=== PATIENT | female | born 1940 | race Caucasian/White ===

== ENCOUNTER → 2018-06-13 | Outpatient (CLI) | payer MEDICARE, OTHER ==
--- NOTE | 2018-06-13 14:54 | Diagnostic Imaging Report ---
EXAMINATION: CHEST 2 VIEWS INDICATION: Bronchitis. COMPARISON: None FINDINGS: TUBES and LINES: None. LUNGS: Lungs are well inflated. Left lung base is somewhat obscured by overlying breast implant. Mild patchy left basilar opacity. No evidence of lobar pneumonia or pulmonary edema. PLEURA: No pleural effusion or pneumothorax. HEART AND MEDIASTINUM: The cardiomediastinal silhouette is unremarkable. BONES AND SOFT TISSUES: No acute osseous abnormality. There are bilateral breast implants. UPPER ABDOMEN: No free air under the diaphragm. Surgical clips in the upper abdomen. Atherosclerotic vascular calcifications. IMPRESSION: Left breast implant somewhat obscures the left lung base. Mild patchy left basilar opacity, likely atelectasis. Patchy pneumonia is possible in the appropriate clinical setting. Signed by: Dr. Carmina Chaparro MD on 06/13/2018 2:51 PM
== END ==
LOC: RAD 11:52
PROVIDERS: ATTEND Internal Medicine
DX: J20.9 Acute bronchitis, unspecified (principal)
CPT/HCPCS: 71046

== ENCOUNTER 2018-08-24 14:09 | Inpatient (IN) | payer MEDICARE, OTHER ==
--- NOTE | 2017-08-25 19:05 | NUR ---
Report received from MARY Lynn. Patient received lethargic and confused. Respiration even and unlabored with RA. Bed in lower position,locked. Call hernandez within reach. Bed alarm on. Will continue to monitor.
[~2018-08-24] VITALS: Ht 160 cm; Wt 62.6 kg
--- OUTSIDE RECORDS SUMMARY | 2018-08-24 14:11 | XMS REPORT | Clinical Summary ---
Author Author [facility] Address Unknown Phone Unavailable Care Team Providers Care Research Instructor Name Role Phone Mirtha Newman MD PCP Allergies No Known Allergies Medications End Date Status Medication Sig Dispensed Refills Start Date Active cyanocobalamin 1,000 Inject 1 mL 1 mL 10 mcg/mL injection (1,000 mcg 8 total) into the shoulder, thigh, or buttocks every 30 (thirty) days for 11 doses. Active cyanocobalamin 1000 MCG Take 1,000 0 tablet mcg by mouth daily. Active acetaminophen (TYLENOL) Take 500 mg 0 500 MG tablet by mouth every 6 (six) hours as needed for mild pain. 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 Thrombocytopenia 03/05/2017 S/P total hip arthroplasty 10/11/2015 Encounters Care Team Description Date Type Specialty Sonia Portillo Left hip pain (Primary Dx) 03/12/2018 Orders Only Orthopedic Surgery after 08/23/2017 Family History Medical History Relation Name Comments Diabetes Brother Heart disease Father Dementia Mother Relation Name Status Comments Brother Alive Father Mother Alive Social History Date Tobacco Use Types Packs/Day Years Used Former Smoker Cigarettes 1 15 Smokeless Tobacco: Never Used Comments: quit at 40 yr ago Alcohol Use Drinks/Week oz/Week Comments Yes 1-2 Glasses 0.6 - 1.2 of wine Sex Assigned at Date Recorded Not on file Industry Job Start Date Occupation Not on file Not on file Not on file Travel End Travel History Travel Start No recent travel history available. Last Filed Vital Signs Not on file Plan of Treatment Health Maintenance Due Date Last Done Comments SHINGLES VACCINES (#1) 1990 65+ PNEUMOCOCCAL VACCINE 2005 (1 of 2 - PCV13) INFLUENZA VACCINE 09/26/2018 Implants Device Identifier Shelf Expiration Date Model / Serial / Lot Implanted Type Area Manufactur er 08/22/2025 [id number] / / [id number] G7 Acetabular Shell 3 Hole - IPM Left: Hip BIOMET, [id number] [employer] Implanted: Qty: 1 on 10/11/2015 by Royal Garrido MD 06/17/2025 [id number] / / [id number] Screw G7 6.5x30 - [id number] IPM Left: Hip BIOMET, Implanted: Qty: 1 on 10/11/2015 by [employer] Royal Carlisle MD DEVICES 07/05/2020 [id number] / / [id number] Liner G7 Neutral Arcomxl F36 - IPM Left: Hip BIOMET, [id number] [employer] Implanted: Qty: 1 on 10/11/2015 by Royal Garrido MD 07/11/2025 [id number] / / [id number] Screw G7 6.5x25 - [id number] IPM Left: Hip BIOMET, Implanted: Qty: 1 on 10/11/2015 by [employer] Royal Carlisle MD DEVICES 07/27/2025 [id number] / / [id number] Tprlc 133 Type1 Pps So 13.0 IPM Left: Hip BIOMET, Taperloc Complete Stem - [id number] [employer] Implanted: Qty: 1 on 10/11/2015 by Royal Garrido MD 07/27/2025 [id number] / / [id number] Cer Bioloxd Mod Hd 36mm Std Nk - IPM Left: Hip BIOMET, [id number] [employer] Implanted: Qty: 1 on 10/11/2015 by Royal Garrido MD Results Not on fileafter 08/23/2017 Insurance Type Payer Benefit Subscriber ID Effective Phone Address Plan / Dates Group Medicare MEDICARE MEDICARE xxxxxxxxxx 2005-P [place], PART A AND resent [place] B Commercial BANKERS LIFE AND CASUALTY BANKERS xxxxxxxxx 2005-P LIFE AND resent CASUALTY Advance Directives Patient has advance care planning documents on file. For more information, gokul badillo contact: Jose Angel Hernandez [address] [place] [address]
--- OUTSIDE RECORDS SUMMARY | 2018-08-24 14:11 | XMS REPORT ---
[facility] Address Unknown Phone Unavailable Care Team Providers Care Swamper Name Role Phone DEB HODGE Unavailable Unavailable Problems This patient has no known problems. Allergies, Adverse Reactions, Alerts This patient has no known allergies or adverse reactions. Medications This patient has no known medications. Results Test Description Test Time Test Comments Text Results Atomic Results Result Comments CHEST 2 VIEWS 2018-06-13 14:48:00 [place] [address] Patient Name: MATTHEW SIDDIQUI MR #: [id number] : 1940 Age/Sex: 77/F Req #: [id number] Adm Physician: Ordered by: DEB HODGE MD Report #: [id number] Location: [facility] Room/Bed: Procedure: [id number] DX/CHEST 2 VIEWS Exam Date: Exam Time: REPORT STATUS: Signed EXAMINATION: CHEST 2 VIEWS INDICATION: Bronchitis. COMPARISON: None FINDINGS: TUBES and LINES: None. LUNGS: Lungs are well inflated. Left lung base is somewhat obscured by overlying breast implant. Mild patchy left basilar opacity. No evidence of lobar pneumonia or pulmonary edema. PLEURA: No pleural effusion or pneumothorax. HEART AND MEDIASTINUM: The cardiomediastinal silhouette is unremarkable. BONES AND SOFT TISSUES: No acute osseous abnormality. There are bilateral breast implants. UPPER ABDOMEN: No free air under the diaphragm. Surgical clips in the upper abdomen. Atherosclerotic vascular calcifications. IMPRESSION: Left breast implant somewhat obscures the left lung base. Mild patchy left basilar opacity, likely atelectasis. Patchy pneumonia is possible in the appropriate clinical setting. Signed by: Dr. Mallory Hunt MD on 06/13/2018 2:51 PM Dictated By: MALLORY HUNT MD 1450 Transcribed By: BERNADETTE on 06/13/18 1451 COPY TO: DEB HODGE MD
[2018-08-24] MEDS ORDERED: PANTOPRAZOLE 40 MG 10ML VIAL IV ONE (14:30)
[2018-08-24] MEDS ORDERED: ONDANSETRON HCL INJ 2MG/ML 2ML 2 MG/ML VIAL IV ONE (14:30)
[2018-08-24] MEDS ORDERED: SODIUM CHLORIDE 0.9% 1000ML 1,000 ML IV STA ×2 (14:30→15:43)
[2018-08-24 14:50] LABS: BASOPHILS % 0.4 % (0.0-1.0); LYMPHOCYTES # (AUTO) 1.3 (1.0-3.2); LYMPHOCYTES % 15.4 % (18.0-39.1); MEAN CORPUSCULAR HEMOGLOBIN 34.4 pg (28-32); MEAN CORPUSCULAR VOLUME 104.3 fL (81-99); MONOCYTES # (AUTO) 0.8 (0.2-0.8); MONOCYTES % 10.1 % (4.4-11.3); NEUTROPHILS # (AUTO) 6.1 (2.1-6.9); NEUTROPHILS % 73.7 % (38.7-80.0); PLATELET COUNT 131 x10e3/uL (140-360); RED BLOOD COUNT 1.86 x10e6/uL (3.6-5.1); RED CELL DISTRIBUTION WIDTH 13.2 % (11.7-14.4)
[2018-08-24 14:57] LABS: HEMATOCRIT 19.4 % (34.2-44.1); HEMOGLOBIN 6.4 g/dL (12.0-16.0)
[2018-08-24 14:58] LABS: INR 1.37; PROTHROMBIN TIME 17.5 seconds (11.9-14.5)
[2018-08-24 14:59] LABS: PARTIAL THROMBOPLASTIN TIME 28.5 seconds (23.8-35.5)
[2018-08-24] MEDS ORDERED: OCTREOTIDE ACETATE 0.05 MG/ML AMP IV ONE (15:00)
[2018-08-24] MEDS ORDERED: OCTREOTIDE ACETATE 600 MCG in SODIUM CHLORIDE 0.9% 250ML 300 ML IV SCH (15:00)
--- NOTE | 2018-08-24 15:07 | NUR ---
New brief applied at this time.
[2018-08-24 15:24] LABS: AMPHETAMINES SCREEN,URINE NEGATIVE (NEGATIVE); BENZODIAZEPINES SCREEN,URINE NEGATIVE (NEGATIVE); PHENCYCLIDINE SCREEN,URINE NEGATIVE (NEGATIVE)
[2018-08-24] MEDS ORDERED: VITAMIN B-121000 MCG IM (15:25)
[2018-08-24] MEDS ORDERED: FUROSEMIDE40 MG PO (15:25)
[2018-08-24] MEDS ORDERED: DIPHENHYDRAMINE25 M2 PO (15:25)
[2018-08-24] MEDS ORDERED: ASPIR 8181 MG PO (15:25)
[2018-08-24] MEDS ORDERED: AMOXICILLIN250 MG PO (15:25)
[2018-08-24] MEDS ORDERED: NAPROXEN250 MG PO (15:25)
--- NOTE | 2018-08-24 15:40 | NUR ---
Informed consent obtained at this time.
[2018-08-24] MEDS ORDERED: MULTIVITAMINS- 12 INJECTION 10 ML, FOLIC ACID MDV 5 MG, THIAMINE HCL INJ 100 MG in SODI... IV ONE (15:45)
[2018-08-24] MEDS ORDERED: SODIUM CHLORIDE 0.9% 1000ML 1,000 ML ONE (15:50)
[2018-08-24] MEDS: OCTREOTIDE ACETATE 500 MCG in SODIUM CHLORIDE 0.9% 250ML 249 ML IV SCH (16:17)
[2018-08-24 16:21] LABS: ALBUMIN 2.5 g/dL (3.5-5.0); ALBUMIN/GLOBULIN RATIO 0.7 (0.8-2.0); CREATININE, SERUM 1.05 mg/dL (0.57-1.11); MAGNESIUM 1.8 MG/DL (1.3-2.1)
[2018-08-24] MEDS ORDERED: IOPAMIDOL 370 MG/ML 200 ML INFUS..BTL INJ ONE (16:52)
[2018-08-24] MEDS ORDERED: SODIUM CHLORIDE 0.9% 50ML 50 ML ONE (16:52)
[2018-08-24 17:03] LABS: BILIRUBIN,URINE NEGATIVE (NEGATIVE); CLARITY,URINE SL CLOUDY (CLEAR); COLOR,URINE YELLOW (YELLOW); KETONES,URINE NEGATIVE (NEGATIVE); LEUKOCYTE ESTERASE ,URINE TRACE (NEGATIVE); NITRITE,URINE NEGATIVE (NEGATIVE); PROTEIN,URINE DIPSTICK NEGATIVE (NEGATIVE); URINE UROBILINOGEN 0.2 mg/dL (0.2 - 1)
[2018-08-24 17:05] LABS: CREATINE KINASE MB 4.4 ng/mL (0-5.0)
--- OUTSIDE RECORDS SUMMARY | 2018-08-24 17:07 | XMS REPORT | Clinical Summary ---
Author Author [facility] Address Unknown Phone Unavailable Care Team Providers Care Flight Mechanic Name Role Phone Mirtha Newman MD PCP [...] Lot Implanted Type Area Manufactur er 08/22/2025 [id number] / / [id number] G7 Acetabular Shell 3 Hole - IPM Left: Hip BIOMET, [id number] [employer] Implanted: Qty: 1 on 10/11/2015 by Royal Garrido MD 06/17/2025 [id number] / / [id number] Screw G7 6.5x30 - [id number] IPM Left: Hip BIOMET, Implanted: Qty: 1 on 10/11/2015 by [employer] Royal Carlisle MD DEVICES 07/05/2020 [id number] / / [id number] Liner G7 Neutral Arcomxl F36 - IPM Left: Hip BIOMET, [id number] [employer] Implanted: Qty: 1 on 10/11/2015 by Royal Garrido MD 07/11/2025 [id number] / / [id number] Screw G7 6.5x25 - [id number] IPM Left: Hip BIOMET, Implanted: Qty: 1 on 10/11/2015 by [employer] Royal Carlisle MD DEVICES 07/27/2025 [id number] / / [id number] Tprlc 133 Type1 Pps So 13.0 IPM Left: Hip BIOMET, Taperloc Complete Stem - [id number] [employer] Implanted: Qty: 1 on 10/11/2015 by Royal Garrido MD 07/27/2025 [id number] / / [id number] Cer Bioloxd Mod Hd 36mm Std Nk - IPM Left: Hip BIOMET, [id number] [employer] Implanted: Qty: 1 on 10/11/2015 [...] information, gokul badillo contact: Jose Angel Hernandez [address] [place] [address]
[2018-08-24] MEDS ORDERED: MORPHINE SULFATE 2 MG/ML SYR 1ML IV PRN (17:30)
[2018-08-24 17:32] LABS: BACTERIA,URINE MODERATE /HPF
[2018-08-24 17:33] LABS: EPITHELIAL CELLS,URINE FEW /LPF
--- NOTE | 2018-08-24 17:41 | Diagnostic Imaging Report ---
EXAMINATION: CHEST SINGLE (PORTABLE) INDICATION: Abdominal pain. COMPARISON: None FINDINGS: TUBES and LINES: None. LUNGS: Lungs are well inflated. There is no evidence of pneumonia or pulmonary edema. PLEURA: No pleural effusion or pneumothorax. HEART AND MEDIASTINUM: The cardiomediastinal silhouette is unremarkable. BONES AND SOFT TISSUES: No acute osseous abnormality. UPPER ABDOMEN: No free air under the diaphragm. IMPRESSION: No acute radiographic abnormality. Signed by: Dr. Carmina Chaparro MD on 08/24/2018 5:37 PM
[2018-08-24] MEDS: MORPHINE SULFATE INJ 4 MG/ML INJ 1ML IV PRN ×2 (17:55→23:50)
--- NOTE | 2018-08-24 17:58 | Diagnostic Imaging Report ---
EXAM: CT Abdomen and Pelvis WITH contrast INDICATION: Abdominal Pain, GI bleed. COMPARISON: None. TECHNIQUE: Abdomen and pelvis were scanned utilizing a multidetector helical scanner from the lung base to the pubic symphysis after administration of IV contrast. Coronal and sagittal reformations were obtained. Routine protocol was performed. Scan was performed when during portal venous phase. IV CONTRAST: 100 cc of Isovue 370 ORAL CONTRAST: Water COMPLICATIONS: None RADIATION DOSE: Total DLP: 492.1 mGy*cm Dose modulation, iterative reconstruction, and/or weight based adjustment of the mA/kV was utilized to reduce the radiation dose to as low as reasonably achievable. FINDINGS: LINES and TUBES: None. LOWER THORAX: Small groundglass nodules measuring up to 4 mm in the right middle lobe and right lower lobe. Calcified granuloma in the lingula. Dependent subsegmental atelectasis in the lower lobe. Coronary atherosclerosis and mild cardiomegaly. HEPATOBILIARY: Cirrhotic morphology to the liver. No evidence of focal lesion. No biliary ductal dilation. GALLBLADDER: Status post cholecystectomy. SPLEEN: No splenomegaly. PANCREAS: No focal masses or ductal dilatation. ADRENALS: No adrenal nodules KIDNEYS/URETERS: Kidneys enhance symmetrically. No evidence of hydronephrosis, solid mass, or stone. GI TRACT: Status post Jojo-en-Y gastric bypass. Colonic diverticulosis without CT evidence of diverticulitis. There is wall thickening within the cecum, ascending colon, and proximal transverse colon. PELVIC ORGANS/BLADDER: Unremarkable. LYMPH NODES: No lymphadenopathy. VESSELS: There is moderate to extensive atherosclerotic disease in the aorta and major arterial branches. There are small perisplenic varices, as seen on series 2, image 23. PERITONEUM / RETROPERITONEUM: No free air or fluid. BONES AND SOFT TISSUES: No acute osseous abnormality. Partially seen bilateral breast implants. Partially seen left hip arthroplasty. T10 hemangioma. CONCLUSION: Colonic wall thickening in the cecum, ascending colon, and proximal transverse colon. Findings are suggestive of colitis, which may be infectious or inflammatory. Portal colopathy is also possible in the setting of cirrhosis. Solid pulmonary nodules measuring up to 4 mm in the right middle lobe and right lower lobe, which may be infectious or inflammatory. Suggest follow-up chest CT in 3 months to assess for resolution. Cirrhotic morphology to the liver. Signed by: Dr. Carmina Chaparro MD on 08/24/2018 5:55 PM
[2018-08-24] MEDS ORDERED: CEFTRIAXONE SOD 1 GM/NS 50 ML 50 ML IV SCH (18:00)
[2018-08-24 18:13] VITALS: BP 120/105
[2018-08-24] MEDS ORDERED: PIPER-TAZ 3.375 GM 50 ML IV SCH (18:15)
[2018-08-24] MEDS ORDERED: METRONIDAZOLE 500MG/NS 100ML 100 ML IV SCH (18:15)
[2018-08-24] MEDS ORDERED: SODIUM CHLORIDE 0.9% 250ML 250 ML ONE ×2 (19:49→22:57)
[2018-08-24 20:00] VITALS: BP 122/45
[2018-08-24 20:00] LABS: BASOPHILS % 0.1 % (0.0-1.0); LYMPHOCYTES # (AUTO) 1.2 (1.0-3.2); LYMPHOCYTES % 14.6 % (18.0-39.1); MEAN CORPUSCULAR HEMOGLOBIN 34.2 pg (28-32); MEAN CORPUSCULAR HGB CONC 31.1 g/dL (31-35); MEAN CORPUSCULAR VOLUME 110.3 fL (81-99); MONOCYTES # (AUTO) 0.8 (0.2-0.8); NEUTROPHILS # (AUTO) 6.1 (2.1-6.9); NEUTROPHILS % 74.9 % (38.7-80.0); PLATELET COUNT 102 x10e3/uL (140-360); RED BLOOD COUNT 1.46 x10e6/uL (3.6-5.1); RED CELL DISTRIBUTION WIDTH 13.2 % (11.7-14.4)
[2018-08-24 20:13] VITALS: BP 122/45
[2018-08-24 20:17] LABS: HEMATOCRIT 16.1 % (34.2-44.1)
[2018-08-24 21:00] VITALS: BP 124/55
--- NOTE | 2018-08-24 21:24 | Consultation ---
DATE OF CONSULTATION: 08/24/2018 CHIEF COMPLAINT: Hematemesis and melena. HISTORY OF PRESENT ILLNESS: The patient is a 78-year-old female with 1-day history of substernal chest discomfort and dry heaving with one episode of hematemesis followed by dark loose melenic stool. The patient has mild abdominal pain. No fever or chills. She admits to some dizziness and weakness. PAST MEDICAL HISTORY: Significant for liver cirrhosis secondary to alcohol use and history of obesity. PAST SURGICAL HISTORY: Hip surgery and gastric bypass in 2004. ALLERGIES: SHE HAD NO DRUGS ALLERGY. SOCIAL HABITS: The patient drinks large quantity of wine regularly. No smoking. REVIEW OF SYSTEMS: As in the HPI. Denies fever or chills. PHYSICAL EXAMINATION: VITAL SIGNS: Stable. Afebrile. GENERAL: She is awake, responsive, in mild discomfort. HEENT: Sclera anicteric. NECK: Supple. LUNGS: Clear. HEART: Regular rate and rhythm. ABDOMEN: Soft. No focal tenderness or mass. EXTREMITIES: No cyanosis or edema. LABORATORY DATA: White cell count is 8, hemoglobin is 6.4, and platelet count of 131. Creatinine of 1.0. Lactic acid is 38.7. Amylase 41. Abdominal CT show colonic wall thickening in the right colon from cecum to proximal transverse colon suggestive of colitis. Evidence of cirrhosis of liver. ASSESSMENT: Gastrointestinal bleeding in patient, who had gastric bypass, taking NSAID intermittently and also positive history for alcohol usage. PLAN: Transfusions to hemoglobin drop to 10. Upper GI endoscopic evaluations by Gastroenterology. Antibiotic coverage for possible colitis. Thank you for consultation. Lasha Campuzano MD DNL/MODL /[id number]
[2018-08-24] MEDS ORDERED: FUROSEMIDE INJ 10 MG/ML 2 ML VIAL IV ONE ×2 (21:30)
--- NOTE | 2018-08-24 21:30 | NUR ---
Critical hemoglobin and lactic acid read back to Dr. Mccall.
[2018-08-24 22:00] VITALS: BP 137/74
[2018-08-24 23:00] VITALS: BP 131/46
[2018-08-24] MEDS: PANTOPRAZOLE 40 MG 10ML VIAL IV SCH (23:49)
[2018-08-25] VITALS (24 sets, daily range): BP systolic 81–177; BP diastolic 51–98
[2018-08-25] MEDS ORDERED: SODIUM CHLORIDE 0.9% 250ML 250 ML ONE ×3 (00:30→03:38)
[2018-08-25] MEDS ORDERED: OCTREOTIDE ACETATE 2 ML ONE (03:27)
[2018-08-25] MEDS ORDERED: SODIUM CHLORIDE 0.9% 50ML 50 ML ONE (03:29)
[2018-08-25] MEDS: OCTREOTIDE ACETATE 500 MCG in SODIUM CHLORIDE 0.9% 250ML 249 ML IV SCH ×3 (03:43→21:55)
[2018-08-25] MEDS ORDERED: FUROSEMIDE INJ 10 MG/ML 4 ML VIAL ONE (06:18)
[2018-08-25] MEDS: LORAZEPAM INJ 2 MG/ML VIAL IV PRN ×4 (06:25→21:04)
[2018-08-25 08:22] LABS: BASOPHILS % 0.5 % (0.0-1.0); EOSINOPHILS # (AUTO) 0.1 (0.0-0.4); EOSINOPHILS % 1.8 % (0.0-6.0); HEMATOCRIT 23.9 % (34.2-44.1); HEMOGLOBIN 8.2 g/dL (12.0-16.0); LYMPHOCYTES # (AUTO) 1.7 (1.0-3.2); LYMPHOCYTES % 30.7 % (18.0-39.1); MEAN CORPUSCULAR HEMOGLOBIN 31.5 pg (28-32); MEAN CORPUSCULAR HGB CONC 34.3 g/dL (31-35); MEAN CORPUSCULAR VOLUME 91.9 fL (81-99); MONOCYTES # (AUTO) 0.8 (0.2-0.8); MONOCYTES % 14.2 % (4.4-11.3); NEUTROPHILS % 52.4 % (38.7-80.0); PLATELET COUNT 81 x10e3/uL (140-360); RED CELL DISTRIBUTION WIDTH 19.9 % (11.7-14.4)
[2018-08-25 08:32] LABS: INR 1.23; PROTHROMBIN TIME 16.1 seconds (11.9-14.5)
[2018-08-25 08:33] LABS: PARTIAL THROMBOPLASTIN TIME 32.7 seconds (23.8-35.5)
[2018-08-25] MEDS: PANTOPRAZOLE 40 MG 10ML VIAL IV SCH ×2 (08:36→20:45)
[2018-08-25] MEDS: CYANOCOBALAMIN INJ 1,000 MCG/ML VIAL IM SCH (08:36)
[2018-08-25] MEDS: THIAMINE HCL INJ 100 MG/ML 2ML VIAL IV SCH (08:36)
[2018-08-25 08:39] LABS: ALBUMIN 2.5 g/dL (3.5-5.0); ALBUMIN/GLOBULIN RATIO 0.9 (0.8-2.0); ANION GAP 12.9 mmol/L (8-16); CALCIUM 8.4 mg/dL (8.4-10.2); CREATININE, SERUM 1.09 mg/dL (0.57-1.11); POTASSIUM 3.9 mmol/L (3.5-5.1)
[2018-08-25] MEDS: CHLORDIAZEPOXIDE HCL 25 MG CAP PO SCH ×3 (09:29→21:55)
[2018-08-25] MEDS: PIPER-TAZ 3.375 GM 50 ML IV SCH ×2 (14:13→21:55)
[2018-08-25] MEDS: METRONIDAZOLE 500MG/NS 100ML 100 ML IV SCH ×2 (14:13→21:55)
--- NOTE | 2018-08-25 15:07 | History and Physical ---
CHIEF COMPLAINT: Acute blood loss anemia, acute GI bleed, rectal bleed. Severe anemia. HISTORY OF PRESENT ILLNESS: The patient is a 78-year-old female came in with rectal bleeding and vomiting blood. She has been passing for the past day or so black tarry stool. The patient became progressively weak. She came to the emergency room and found to have hemoglobin and hematocrit of 5 and 16.1. The patient's BUN and creatinine were 51 and 1.0. The patient is a heavy alcohol drinker. At baseline, the patient has history of gastric bypass surgery. She is going to early alcohol withdrawal. She does have some tremor. The patient did receive 3 units of packed red blood cell orders and also FFP as well. Her INR was 1.37, PT 17.5, and PTT 28.5. The patient platelets 102. CT scan show cirrhotic morphology of the liver, but no focal lesion. The patient also has an inflammatory process in the colonic wall in the cecum and ascending colon. The patient also has some inflammation in a proximal transverse colon as well. The patient was placed on Zosyn and IV Flagyl. The patient is on octreotide and PPI. The patient is currently stable. PAST SURGICAL HISTORY: Also left hip surgery. Gastric bypass surgery. Cholecystectomy, appendectomy. She had a Jojo-en-Y gastric bypass surgery. SOCIAL HISTORY: The patient is a heavy drinker. She smoked tobacco in the remote past, but she quit years ago. She lives at home with her family. ALLERGIES: NO KNOWN ALLERGIES. HOME MEDICATION: Amoxicillin, aspirin, vitamin B12, Benadryl, furosemide, naproxen. PHYSICAL EXAMINATION: VITAL SIGNS: Temperature is 98, blood pressure 124/55, pulse rate 89, respirations 20. GENERAL: The patient has some tremor, early alcohol withdrawal symptoms and looked confused, but otherwise no acute distress. HEENT: Normocephalic, atraumatic. Anicteric. NECK: Supple grossly. PULMONARY: Diminished breath sounds. CARDIOVASCULAR: S1, S2. Regular rate and rhythm. ABDOMEN: Soft. Generalized discomfort, but no guarding or rebound tenderness. EXTREMITIES: No cyanosis or edema. NEUROLOGIC: Early alcohol withdrawal with tremor and some confusion. There is no other focal deficit. Moving all extremities and following instructions. LABORATORY DATA: Sodium is 142, potassium 5, chloride 109, bicarb 19, BUN 51, creatinine 1.05, glucose 134. WBC is 8.1, hemoglobin 5, hematocrit 16.1, platelets is 102. PT is 17.5, PTT 28.5, INR is 1.37. IMPRESSION: 1. Acute blood loss anemia secondary to upper GI bleed, most likely multifactorial, but most likely gastric ulcer giving NSAID and alcohol. 2. Early alcohol withdrawal. 3. History of Jojo-en-Y gastric bypass. 4. Alcoholism most consistent with the patient's drinking history. PLAN: Continue with FFP and octreotide drip. The patient will need upper endoscopy. The patient will continue to treat for alcohol withdrawal symptoms. We will add on Librium 25 mg q.8 schedule and Ativan as needed. We will continue with banana bag. Thiamine IV B12 injection. We will obtain all the electrolytes, B12, folic acid, potassium. Repeat lab work. Check for the CBC. The patient will remain in ICU. MD GREGORY Bowen/ALEXANDER /[id number]
[2018-08-26] VITALS (26 sets, daily range): BP systolic 131–188; BP diastolic 54–111
[2018-08-26] MEDS: LORAZEPAM INJ 2 MG/ML VIAL IV PRN ×4 (01:13→11:08)
--- NOTE | 2018-08-26 04:49 | NUR ---
Called Dr. Mccall to notified Patient's high BP. stated that "Its okay at this time, I am gonna take care while I round in the morning".
[2018-08-26] MEDS: PIPER-TAZ 3.375 GM 50 ML IV SCH ×3 (05:28→23:21)
[2018-08-26] MEDS: CHLORDIAZEPOXIDE HCL 25 MG CAP PO SCH ×3 (05:28→22:00)
[2018-08-26] MEDS: METRONIDAZOLE 500MG/NS 100ML 100 ML IV SCH ×3 (05:28→23:21)
[2018-08-26 05:37] LABS: BASOPHILS % 0.7 % (0.0-1.0); EOSINOPHILS # (AUTO) 0.2 (0.0-0.4); EOSINOPHILS % 4.1 % (0.0-6.0); LYMPHOCYTES % 24.1 % (18.0-39.1); MEAN CORPUSCULAR HEMOGLOBIN 31.4 pg (28-32); MEAN CORPUSCULAR HGB CONC 33.9 g/dL (31-35); MEAN CORPUSCULAR VOLUME 92.7 fL (81-99); MONOCYTES # (AUTO) 0.7 (0.2-0.8); MONOCYTES % 16.5 % (4.4-11.3); NEUTROPHILS # (AUTO) 2.2 (2.1-6.9); NEUTROPHILS % 53.9 % (38.7-80.0); PLATELET COUNT 77 x10e3/uL (140-360); RED BLOOD COUNT 2.45 x10e6/uL (3.6-5.1); RED CELL DISTRIBUTION WIDTH 20.4 % (11.7-14.4)
[2018-08-26 05:55] LABS: ANION GAP 12.7 mmol/L (8-16); CALCIUM 8.4 mg/dL (8.4-10.2); CREATININE, SERUM 1.04 mg/dL (0.57-1.11); POTASSIUM 3.7 mmol/L (3.5-5.1)
[2018-08-26 05:57] LABS: HEMATOCRIT 22.7 % (34.2-44.1)
[2018-08-26 06:05] LABS: HEMOGLOBIN 7.7 g/dL (12.0-16.0)
[2018-08-26 06:12] LABS: MAGNESIUM 2.1 MG/DL (1.3-2.1); PHOSPHORUS 3.1 MG/DL (2.3-4.7)
--- NOTE | 2018-08-26 06:58 | NUR ---
Report given to oncoming nurse RN Jessenia,walking round done.
[2018-08-26] MEDS: OCTREOTIDE ACETATE 500 MCG in SODIUM CHLORIDE 0.9% 250ML 249 ML IV SCH ×2 (08:00→19:10)
[2018-08-26] MEDS: MORPHINE SULFATE INJ 4 MG/ML INJ 1ML IV PRN (08:02)
[2018-08-26] MEDS ORDERED: HYDRALAZINE HCL 20 MG/ML VIAL IV PRN (08:45)
[2018-08-26] MEDS ORDERED: CLONIDINE HCL 0.2 MG/24 HR 1 EA PATCH TOP SCH (09:00)
[2018-08-26] MEDS ORDERED: SODIUM CHLORIDE 0.9% 250ML 250 ML IV ONE (09:00)
[2018-08-26] MEDS: CYANOCOBALAMIN INJ 1,000 MCG/ML VIAL IM SCH (09:19)
[2018-08-26] MEDS: THIAMINE HCL INJ 100 MG/ML 2ML VIAL IV SCH (09:19)
[2018-08-26] MEDS: PANTOPRAZOLE 40 MG 10ML VIAL IV SCH ×2 (09:19→21:07)
[2018-08-26] MEDS: ONDANSETRON HCL INJ 2MG/ML 2ML 2 MG/ML VIAL IV PRN ×2 (11:12→22:36)
[2018-08-26] MEDS ORDERED: SODIUM CHLORIDE 0.9% 250ML 250 ML ONE (12:55)
[2018-08-26] MEDS: EYE LUBRICANT OPTH OINT 3.5GM TUBE OP SCH ×2 (13:27→16:41)
[2018-08-26] MEDS ORDERED: PROPOFOL IV EMULSION 10 MG/ML 50 ML VIAL ONE (13:49)
[2018-08-26] MEDS ORDERED: FUROSEMIDE INJ 10 MG/ML 4 ML VIAL IV NR (14:30)
--- NOTE | 2018-08-26 15:42 | NUR ---
Wound consultation for Stage I pressure ulcer present on admission. Stage I noted at 2.5 cm x 4.0 cm to sacrum. WBC 4.11 Glucose at 118. Patient is currently on moderate Pressure ulcer precautions. Heel protectors and alternating pressure relief surface in progress with appropriate weight settings. Will begin Venelex to sacrum bid. Continue heel protectors and alternating pressure relief mattress for weight setting. Turn q 2 hours. Out of bed for meals as tolerated.
[2018-08-26] MEDS ORDERED: PANTOPRAZOLE 40 MG 10ML VIAL IV NR (16:20)
[2018-08-26] MEDS: SUCRALFATE 1 GM TAB PO SCH ×2 (16:41→21:00)
[2018-08-26] MEDS: BALSAM PERU/CASTOR OIL 60 GM OINT...G. TP SCH (16:41)
--- NOTE | 2018-08-26 16:54 | Operative Report ---
DATE OF PROCEDURE: 08/26/2018 SURGEON: Oscar Pulliam MD PROCEDURE: Esophagogastroduodenoscopy. INDICATIONS FOR EGD: History of hematemesis, melena. MEDICATION: The patient was done under MAC, please see anesthesiologist's note. PROCEDURE IN DETAIL: With the patient in left lateral decubitus position, a flexible fiberoptic Olympus gastroscope was introduced into the esophagus under direct visualization without any difficulty. There was some patchy erythema noted in the distal esophagus. The scope was then advanced with ease into the stomach and the patient is status post Jojo-en-Y. Anastomosis was approximately 55 cm distal to the GE junction that was intact. There were no marginal ulcers and the efferent loop was patent. The scope was retroflexed into the gastric stump and some postoperative changes were noted and the cardia was within normal limits. The scope was then straightened out, it was subsequently withdrawn. The patient tolerated the procedure well. IMPRESSION: 1. Distal esophagitis, mild. 2. Status post Jojo-en-Y. Anastomosis intact. No marginal ulcers were noted. PLAN: Continue current therapy. Add Carafate 1 g p.o. a.c. t.i.d. and at bedtime. The patient will probably need a colonoscopy as findings do not explain the patient's anemia. Oscar Pulliam MD [facility] /[id number] cc: MD Mirtha Bowen MD
--- NOTE | 2018-08-26 17:56 | NUR ---
Patient remains sleepy after EGD, answers questions when verbally stimulated, resting, eyes closed otherwise. Complete bath and linen change and Purewick changed. 2200 mL urine output.
--- NOTE | 2018-08-26 19:00 | NUR ---
Received report from Timothy Olmos RN. Have been notified that the pt is s/p procedure sedation on top of anti anxiolytic due to aggitation from DT's. Reported that she does not have an actual new neuro status change, she does not appear with new concerns, and that she has been AMS since arrival to ICU. Will monitor.
[2018-08-26 19:15] LABS: HEMATOCRIT 33.2 % (34.2-44.1); HEMOGLOBIN 11.5 g/dL (12.0-16.0)
[2018-08-27] VITALS (26 sets, daily range): BP systolic 120–161; BP diastolic 47–101
[2018-08-27] MEDS: POTASSIUM CHLORIDE 40 MEQ in DEXTROSE 5% 1,000 ML IV SCH (02:30)
[2018-08-27] MEDS: OCTREOTIDE ACETATE 500 MCG in SODIUM CHLORIDE 0.9% 250ML 249 ML IV SCH ×3 (03:51→23:30)
[2018-08-27 05:08] LABS: BASOPHILS % 0.4 % (0.0-1.0); EOSINOPHILS # (AUTO) 0.1 (0.0-0.4); EOSINOPHILS % 1.2 % (0.0-6.0); HEMATOCRIT 25.4 % (34.2-44.1); HEMOGLOBIN 8.7 g/dL (12.0-16.0); LYMPHOCYTES # (AUTO) 1.5 (1.0-3.2); LYMPHOCYTES % 17.8 % (18.0-39.1); MEAN CORPUSCULAR HEMOGLOBIN 31.4 pg (28-32); MEAN CORPUSCULAR HGB CONC 34.3 g/dL (31-35); MEAN CORPUSCULAR VOLUME 91.7 fL (81-99); MONOCYTES # (AUTO) 1.2 (0.2-0.8); NEUTROPHILS # (AUTO) 5.5 (2.1-6.9); NEUTROPHILS % 66.1 % (38.7-80.0); PLATELET COUNT 97 x10e3/uL (140-360); RED BLOOD COUNT 2.77 x10e6/uL (3.6-5.1); RED CELL DISTRIBUTION WIDTH 19.9 % (11.7-14.4)
[2018-08-27] MEDS: LORAZEPAM INJ 2 MG/ML VIAL IV PRN (05:12)
[2018-08-27 05:22] LABS: ANION GAP 14.5 mmol/L (8-16); CALCIUM 8.3 mg/dL (8.4-10.2); CREATININE, SERUM 1.09 mg/dL (0.57-1.11); POTASSIUM 3.5 mmol/L (3.5-5.1)
[2018-08-27] MEDS: CHLORDIAZEPOXIDE HCL 25 MG CAP PO SCH ×3 (05:43→21:38)
[2018-08-27] MEDS: PIPER-TAZ 3.375 GM 50 ML IV SCH ×3 (06:18→21:38)
[2018-08-27] MEDS: METRONIDAZOLE 500MG/NS 100ML 100 ML IV SCH ×3 (06:18→21:38)
[2018-08-27] MEDS: SUCRALFATE 1 GM TAB PO SCH ×4 (07:30→21:00)
[2018-08-27] MEDS: DEXTROSE 5% 1,000 ML IV SCH ×2 (08:30→19:33)
--- NOTE | 2018-08-27 08:44 | NUR ---
Awaiting call back from Dr Do Pulliam.
[2018-08-27] MEDS: CYANOCOBALAMIN INJ 1,000 MCG/ML VIAL IM SCH (09:00)
--- NOTE | 2018-08-27 09:08 | NUR ---
New consult called to Dr Gutierrez's office.
[2018-08-27] MEDS ORDERED: SODIUM CHLORIDE 0.9% 250ML 250 ML IV ONE (09:15)
[2018-08-27] MEDS ORDERED: PANTOPRAZOLE 40 MG 10ML VIAL IV STA (09:17)
[2018-08-27] MEDS ORDERED: PROTONIX 200MG/SODIUM CHLORIDE 0.9% 250 ML BAG IV SCH (09:30)
[2018-08-27 10:06] LABS: INR 1.48; PROTHROMBIN TIME 18.5 seconds (11.9-14.5)
[2018-08-27] MEDS: EYE LUBRICANT OPTH OINT 3.5GM TUBE OP SCH ×2 (11:17→17:00)
[2018-08-27] MEDS: PANTOPRAZOL 40MG/SOD CHL 0.9% 50 ML IV SCH ×3 (11:17→19:37)
[2018-08-27] MEDS: PANTOPRAZOLE 40 MG 10ML VIAL IV SCH ×3 (11:17→21:01)
[2018-08-27] MEDS: THIAMINE HCL INJ 100 MG/ML 2ML VIAL IV SCH (11:17)
[2018-08-27] MEDS: BALSAM PERU/CASTOR OIL 60 GM OINT...G. TP SCH ×2 (11:17→19:06)
--- NOTE | 2018-08-27 12:19 | Consultation ---
DATE OF CONSULTATION: 08/27/2018 Renal Consult REASON FOR CONSULT: Hypernatremia. HISTORY OF PRESENT ILLNESS: This is a 78-year-old female, who came in with rectal bleeding and vomiting blood. The patient while she was in the hospital did not have any symptoms apparently on admission, but then started developing bleeding while she was here and she started going to DT. Upon admission, her hemoglobin was 5 with a creatinine of 1. PAST SURGICAL HISTORY: 1. Left hip surgery. 2. Cholecystectomy. 3. Appendectomy. 4. Jojo-en-Y gastric bypass surgery. PAST MEDICAL HISTORY: Alcohol abuse. ALLERGIES: NO ALLERGIES. HOME MEDICATIONS: Include Naprosyn, furosemide, Benadryl, vitamin B12, aspirin, amoxicillin. REVIEW OF SYSTEMS: Unable to get from the patient. PHYSICAL EXAMINATION: GENERAL: The patient is confused. HEENT: Pupils are equal and reactive to light and accommodation. NECK: No JVD. No bruit. LUNGS: No rhonchi. No rales. HEART: Regular rate and rhythm. No S3, no S4. ABDOMEN: Nontender, nondistended. No hepatomegaly or splenomegaly. EXTREMITIES: No clubbing, no cyanosis, no edema. NEUROLOGIC: Unable to do a full exam. LABORATORY DATA: Today, sodium 155, potassium 3.5, chloride 120, creatinine 1.09. White count 8.2, hemoglobin 8.7, hematocrit 25.4. Her hemoglobin is down from 11.5 yesterday. ASSESSMENT AND PLAN: 1. Gastrointestinal bleed, currently followed by Gastroenterology. 2. Hypernatremia, most likely secondary to delirium tremens and gastrointestinal bleed, currently on D5W. We will check her sodium three times a day and we will adjust IV rates depending on her improvement. 3. Alcohol withdrawal, currently on appropriate treatment. 4. Urinalysis negative for infection. 5. Malnutrition. An outpatient treatment is needed. Attila Ying MD MA/ALEXANDER /[id number]
[2018-08-27] MEDS ORDERED: SODIUM CHLORIDE 0.9% 250ML 250 ML ONE (12:24)
--- NOTE | 2018-08-27 12:43 | NUR ---
Patient has rec'd 2 FFP and first of 2 PRBCs is infusing.
--- NOTE | 2018-08-27 13:10 | NUR ---
PT DISCUSSED IN BARRIER ROUNDS, Do PAUL CONSULTED FOR GI AND ASMARY FOR SODIUM, HAD EGD, SOME BLEEDING GOING FOR STAT SCAN, FFP, PROTONIX H&H IS 8.
[2018-08-27] MEDS ORDERED: PHYTONADIONE 10MG/ML 20 MG in SODIUM CHLORIDE 0.9% 50ML 50 ML IV ONE ×2 (13:15→23:00)
[2018-08-27 14:28] LABS: ALBUMIN 2.3 g/dL (3.5-5.0); ANION GAP 13.3 mmol/L (8-16); CREATININE, SERUM 1.22 mg/dL (0.57-1.11); POTASSIUM 3.3 mmol/L (3.5-5.1)
--- NOTE | 2018-08-27 16:06 | NUR ---
Patient has received 2 PRBC, 2 regular and 1 jumbo FFP this shift.
--- NOTE | 2018-08-27 17:57 | NUR ---
Dr Do Pulliam spoke with patient's son, Romel, and updated on patient's condition and plan of care. Provided with son, Evin's phone number. Patient resting, eyes closed, states, "my hips hurt." Patient still too lethargic at times to swallow per nursing judgement.
[2018-08-27 19:48] LABS: BASOPHILS % 0.2 % (0.0-1.0); EOSINOPHILS # (AUTO) 0.1 (0.0-0.4); EOSINOPHILS % 1.7 % (0.0-6.0); LYMPHOCYTES # (AUTO) 1.5 (1.0-3.2); LYMPHOCYTES % 23.6 % (18.0-39.1); MEAN CORPUSCULAR HEMOGLOBIN 31.1 pg (28-32); MEAN CORPUSCULAR HGB CONC 35.3 g/dL (31-35); MEAN CORPUSCULAR VOLUME 88.1 fL (81-99); MONOCYTES % 15.2 % (4.4-11.3); NEUTROPHILS # (AUTO) 3.9 (2.1-6.9); PLATELET COUNT 59 x10e3/uL (140-360); RED BLOOD COUNT 1.93 x10e6/uL (3.6-5.1); RED CELL DISTRIBUTION WIDTH 18.1 % (11.7-14.4)
[2018-08-27 19:58] LABS: INR 1.35; PROTHROMBIN TIME 17.3 seconds (11.9-14.5)
[2018-08-27 19:59] LABS: PARTIAL THROMBOPLASTIN TIME 31.7 seconds (23.8-35.5)
--- NOTE | 2018-08-27 20:27 | NUR ---
Personal possessions have been given to security to put in safe. A arnett watch, a ring , cell phone, license, insurance cards.
[2018-08-27] MEDS ORDERED: SODIUM CHLORIDE 0.9% 250ML 250 ML IV NR (21:30)
[2018-08-27] MEDS ORDERED: PHYTONADIONE 10 MG/ML AMP SQ ONE (22:15)
[2018-08-27 22:52] LABS: ALBUMIN 2.2 g/dL (3.5-5.0); CALCIUM 7.6 mg/dL (8.4-10.2); CREATININE, SERUM 1.26 mg/dL (0.57-1.11)
--- NOTE | 2018-08-27 23:20 | NUR ---
Vital signs entered as data control assistant only, patient care provided by assigned MARY Chavez.
[2018-08-28] VITALS (34 sets, daily range): BP systolic 108–162; BP diastolic 49–82
[2018-08-28] MEDS ORDERED: METRONIDAZOLE 500MG/NS 100ML 100 ML IV SCH
--- NOTE | 2018-08-28 00:05 | Diagnostic Imaging Report ---
Abdomen/KUB INDICATION: ^GI BLEED ^[id number] ^2331 ^Y COMPARISON: CT abdomen/pelvis 08/24/2018. FINDINGS: Portable, supine image obtained at 2331 hours. The images mildly motion degraded. Medical Devices: Left hip arthroplasty is in anatomic alignment without associated fracture or lucency to suggest loosening. Bowel: Little small bowel air. Small amount of air in the large bowel. Free air: None Calcifications: None over the renal shadows or along the expected course of the ureters Organomegaly: None Lung bases: Grossly clear. Bones: Degenerative changes of the spine and right hip. IMPRESSION: Motion degraded image. Little small bowel air. Signed by: Dr. Sanjana Skelton MD on 08/28/2018 12:02 AM
[2018-08-28] MEDS ORDERED: POTASSIUM CHLORIDE 20MEQ/100ML 200 ML IV ONE (00:15)
--- NOTE | 2018-08-28 00:15 | NUR ---
16 FR cleaning inserted with some difficulty. 10cc balloon. Cleaning care done.
[2018-08-28] MEDS: POTASSIUM CHLORIDE 40 MEQ in DEXTROSE 5% 1,000 ML IV SCH ×2 (00:44→10:27)
[2018-08-28] MEDS: PANTOPRAZOL 40MG/SOD CHL 0.9% 50 ML IV SCH ×3 (01:00→10:29)
--- NOTE | 2018-08-28 02:45 | Diagnostic Imaging Report ---
NUCLEAR MEDICINE TAGGED RED BLOOD CELL IMAGING OF THE ABDOMEN FOR GASTROINTESTINAL BLEEDING CPT CODE: 89185 INDICATION: GI bleed, bloody stool, bright red, actively bleeding DESCRIPTION: Following intravenous administration of 27.0 mCi 99mTechnetium-Ultratag labeled autologous red blood cells, dynamic imaging of the abdomen was performed for 60 minutes. COMPARISON: CT abdomen/pelvis 08/24/2018 FINDINGS: There is active extravasation beginning in the epigastric region and concentrated in the midline abdomen extending into the lower pelvis on delayed images consistent with small bowel hemorrhage. Of note, the patient is status post Jojo-en-Y bypass. There is no active bleeding corresponding to the expected location of the large bowel. IMPRESSION: Active gastrointestinal bleed localized to the proximal and mid small bowel. Signed by: Dr. Sanjana Skelton MD on 08/28/2018 2:42 AM
[2018-08-28] MEDS ORDERED: SODIUM CHLORIDE 0.9% 250ML 250 ML ONE ×2 (03:26→11:50)
[2018-08-28] MEDS: METRONIDAZOLE 500MG/NS 100ML 100 ML IV SCH ×2 (05:00→10:20)
--- NOTE | 2018-08-28 05:12 | NUR ---
OK for PICC line placement. PICC team called to notify. Addendum: 08/28/18 at 0836 by Dimitrios Chavez RN Paged and spoke with Dr. Do Ying. He has given approval for PICC line placement.
[2018-08-28] MEDS: CHLORDIAZEPOXIDE HCL 25 MG CAP PO SCH (05:39)
[2018-08-28] MEDS: PIPER-TAZ 3.375 GM 50 ML IV SCH (05:39)
[2018-08-28 06:45] LABS: BASOPHILS % 0.5 % (0.0-1.0); EOSINOPHILS # (AUTO) 0.3 (0.0-0.4); HEMOGLOBIN 7.1 g/dL (12.0-16.0); LYMPHOCYTES % 24.4 % (18.0-39.1); MEAN CORPUSCULAR HEMOGLOBIN 30.7 pg (28-32); MEAN CORPUSCULAR HGB CONC 34.8 g/dL (31-35); MEAN CORPUSCULAR VOLUME 88.3 fL (81-99); MONOCYTES # (AUTO) 1.2 (0.2-0.8); MONOCYTES % 14.4 % (4.4-11.3); NEUTROPHILS # (AUTO) 4.5 (2.1-6.9); NEUTROPHILS % 56.1 % (38.7-80.0); PLATELET COUNT 112 x10e3/uL (140-360); RED BLOOD COUNT 2.31 x10e6/uL (3.6-5.1); RED CELL DISTRIBUTION WIDTH 16.1 % (11.7-14.4)
[2018-08-28] MEDS ORDERED: SODIUM CHLORIDE 0.9% 250ML 250 ML IV ONE (06:45)
[2018-08-28 06:53] LABS: HEMATOCRIT 20.4 % (34.2-44.1)
[2018-08-28 07:02] LABS: INR 1.35
[2018-08-28 07:03] LABS: PARTIAL THROMBOPLASTIN TIME 33.1 seconds (23.8-35.5)
[2018-08-28 07:05] LABS: PROTHROMBIN TIME 17.3 seconds (11.9-14.5)
[2018-08-28] MEDS ORDERED: PHYTONADIONE 10 MG/ML AMP IV ONE (07:30)
[2018-08-28] MEDS: SUCRALFATE 1 GM TAB PO SCH ×2 (07:30→10:30)
[2018-08-28 07:32] LABS: ALBUMIN 2.3 g/dL (3.5-5.0); ALBUMIN/GLOBULIN RATIO 1.2 (0.8-2.0); ANION GAP 10.7 mmol/L (8-16); CALCIUM 7.6 mg/dL (8.4-10.2); CREATININE, SERUM 1.18 mg/dL (0.57-1.11); POTASSIUM 3.7 mmol/L (3.5-5.1)
--- NOTE | 2018-08-28 07:40 | NUR ---
As of shift change, Dr Do Pulliam ordered: a third jumbo FFP, 2 more units of PRBCs, and 1 more jumbo platelets along with another IV Vitamin K IVPB to address the am labs.
--- NOTE | 2018-08-28 07:42 | NUR ---
Have called and spoken with sonColt regarding transfer to [facility] for interventional radiology. He has given verbal permission for the transfer. Second nurse Katrin HERNANDEZ.
[2018-08-28] MEDS ORDERED: PHYTONADIONE 10MG/ML 20 MG in SODIUM CHLORIDE 0.9% 50ML 50 ML IV ONE (08:00)
--- NOTE | 2018-08-28 09:30 | Diagnostic Imaging Report ---
EXAMINATION: CHEST XRAY LINE PLACEMENT INDICATION: Line placement COMPARISON: FINDINGS: TUBES and LINES: Right upper extremity PICC line terminates in the SVC. LUNGS: The lung volumes are low. No focal consolidation or pulmonary edema. PLEURA: No pleural effusion or pneumothorax. HEART AND MEDIASTINUM: The cardiomediastinal silhouette is normal in size and contour. BONES AND SOFT TISSUES: No acute fracture or dislocation. UPPER ABDOMEN: No free air under the diaphragm. IMPRESSION: Right upper extremity PICC line terminates in the SVC. Signed by: Rayna Parikh MD on 08/28/2018 9:27 AM
[2018-08-28] MEDS: BALSAM PERU/CASTOR OIL 60 GM OINT...G. TP SCH (10:16)
[2018-08-28] MEDS: THIAMINE HCL INJ 100 MG/ML 2ML VIAL IV SCH (10:20)
[2018-08-28] MEDS: EYE LUBRICANT OPTH OINT 3.5GM TUBE OP SCH (10:21)
[2018-08-28] MEDS: OCTREOTIDE ACETATE 500 MCG in SODIUM CHLORIDE 0.9% 250ML 249 ML IV SCH (10:28)
[2018-08-28] MEDS ORDERED: DEXTROSE 5% 1,000 ML IV SCH (12:00)
--- NOTE | 2018-08-28 13:46 | NUR ---
During shift patient received 4 units FFP, 1 unit of platelets, 2 unit PRBC's (PRBC's run wide open per Dr. Do Pulliam). No s/s of transfusion reactions. Vital signs stable throughout shift. Patient also had PICC line inserted to R upper Arm and placement was verified and ok to use. Patient had 3 large bright red/black stools. Report called to Tian HERNANDEZ at [place], family aware of transfer. [address] [place] [address] EMS arrived to transport patient to [facility]. MICU Room #24. Romel (son) called and informed of patients status.
--- NOTE | 2018-08-28 15:11 | Discharge Summary ---
TRANSFER SUMMARY The patient transferred to [facility] on August 28, 2018, CONSULTANTS: 1. Dr. Lasha Campuzano. 2. Dr. Marco Gutierrez. 3. Dr. Oscar Pulliam. PCP: Dr. Mirtha Newman. FINAL DIAGNOSES: 1. Ongoing gastrointestinal bleed, status post extensive multiple blood transfusion. 2. Status post esophagogastroduodenoscopy. No gross bleed in the stomach or the esophagus. Only gastritis. 3. Small bowel bleed from bleeding scan. 4. Delirium secondary to alcohol withdrawal. 5. Coagulopathy corrected with FFP. 6. Hypernatremia. SUMMARY: The patient is a 78-year-old female admitted to the hospital for melena. The patient has a significant bleed. She has history of extensive alcohol consumption. She also has history of gastric bypass [id number]. The patient came in with significant hematemesis and melena and admitted to the hospital. Her hemoglobin and hematocrit were low on admission. The patient received 3 units of blood transfusion after that in the emergency room. Hemoglobin and hematocrit were 5 and 16.10 respectively. Platelets were 105. The patient's platelet today is 112. Hemoglobin and hematocrit of 7.1 and 20.4 post 5 units blood transfusion along with multiple Jumbo FFP. The patient's sodium level was 155, potassium was 3.7. BUN and creatinine are 31 and 1.18 today. EGD did not reveal bleed, therefore, a bleeding scan was obtained and the evidence showed us small bowel bleed. The patient is transferring to [facility] for Interventional Radiology to possible embolizing the bleed in the small bowel. There is no procedure capability here at [facility]. Hemoglobin and hematocrit 7.1 and 20.4 after two further 2 units of blood transfusion. The patient will be transferred today and the patient will be cared for and continue to be managed at the facility at [facility]. We will continue to monitor the patient closely. Discussed with Dr. Lasha Campuzano, the patient's surgeon. MD GREGORY Bowen/ALEXANDER /[id number]
[2018-08-28 15:47] LABS: FOLATE > 40.0 ng/mL (7.0-15.4)
== END 2018-08-28 13:30 | disposition other institution (70) | DRG 378 ==
LOC: ER 14:09 → ERHOLD 17:04 → ICU 17:41
PROVIDERS: ADMIT Internal Medicine; ATTEND Internal Medicine
PROC: 30233L1 Transfusion of Nonautologous Fresh Plasma into Peripheral Vein, Percutaneous Approach (ICD-10-PCS; 2018-08-24)
PROC: 30233P1 Transfusion of Nonautologous Frozen Red Cells into Peripheral Vein, Percutaneous Approach (ICD-10-PCS; 2018-08-24)
PROC: 30233K1 Transfusion of Nonautologous Frozen Plasma into Peripheral Vein, Percutaneous Approach (ICD-10-PCS; 2018-08-24)
PROC: 0DJ08ZZ Inspection of Upper Intestinal Tract, Via Natural or Artificial Opening Endoscopic (ICD-10-PCS; principal; 2018-08-26 16:03)
PROC: 30233R1 Transfusion of Nonautologous Platelets into Peripheral Vein, Percutaneous Approach (ICD-10-PCS; 2018-08-27)
PROC: 02HV33Z Insertion of Infusion Device into Superior Vena Cava, Percutaneous Approach (ICD-10-PCS; 2018-08-28)
PROC: B548ZZA Ultrasonography of Superior Vena Cava, Guidance (ICD-10-PCS; 2018-08-28)
DX: K92.2 Gastrointestinal hemorrhage, unspecified (principal); K51.911 Ulcerative colitis, unspecified with rectal bleeding; N30.01 Acute cystitis with hematuria; D62 Acute posthemorrhagic anemia; F10.231 Alcohol dependence with withdrawal delirium; E87.0 Hyperosmolality and hypernatremia; E46 Unspecified protein-calorie malnutrition; K92.1 Melena; K92.0 Hematemesis; Z98.84 Bariatric surgery status; R01.1 Cardiac murmur, unspecified; Z82.49 Family history of ischemic heart disease and other diseases of the circulatory system; K20.9 Esophagitis, unspecified; Z87.891 Personal history of nicotine dependence; K70.30 Alcoholic cirrhosis of liver without ascites
CPT/HCPCS: 36415; 36569; 43235; 71045; 74018; 74177; 78278; 80048; 80053; 80307; 80320; 81001; 82140; 82150; 82270; 82550; 82553; 82607; 82746; 83605; 83690; 83735; 84100; 84443; 84484; 85014; 85018; 85025; 85610; 85730; 86850; 86900; 86920; 87086; 87186; 93005; 99285; A9512; J0360; J1940; J2060; J2270; J2353; J2354; J2405; J2543; J3411; J3420; J3430; J3480; J7030; J7050; J7070; P9016; P9017; P9034; Q9967

== ENCOUNTER → 2021-12-12 | Outpatient (CLI) | payer MEDICARE ==
[~2021-12-12] MED LIST: AMOXICILLIN250 MG PO; ASPIR 8181 MG PO; BUPROPION HCL75 MG PO; DIPHENHYDRAMINE25 M2 PO; DOCUSATE SODIU100 MG PO; FOLIC ACID0.4 MG PO; FUROSEMIDE40 MG PO; LACTULOSE20 GM/30 M PO; METOPROLOL TART25 MG PO; NAPROXEN250 MG PO; POTASSIUM CHLO20 ME1 PO; PROTONIX20 MG PO; QUETIAPINE FUMA25 MG PO; SINEMET 25-1001 EACH PO; VITAMIN B-121000 MCG IM
== END ==
LOC: MAMMO 10:52
PROVIDERS: ATTEND Internal Medicine
DX: Z12.31 Encounter for screening mammogram for malignant neoplasm of breast (principal)
CPT/HCPCS: 77067

== ENCOUNTER → 2021-12-12 | Outpatient (CLI) | payer MEDICARE, OTHER ==
[~2021-12-12] MED LIST changes: +DIATRIZOATE MEGL/DIATRIZOA SOD 30 ML BTL PO ONE; +IOPAMIDOL 370 MG/ML 100 ML INFUS..BTL INJ ONE; +SODIUM CHLORIDE 0.9% 500ML 500 ML ONE
== END ==
LOC: CT 10:50
PROVIDERS: ATTEND Internal Medicine Gastroenterology
DX: K74.69 Other cirrhosis of liver (principal); R63.0 Anorexia; R68.81 Early satiety; R63.4 Abnormal weight loss
CPT/HCPCS: 74176; J7040; Q9963; Q9967

== ENCOUNTER → 2021-12-15 | Day surgery (SDC) | payer MEDICARE, OTHER ==
[2021-12-12 11:25] LABS: BASOPHILS % 0.4 % (0.0-1.0); EOSINOPHILS # (AUTO) 0.1 (0.0-0.4); EOSINOPHILS % 4.3 % (0.0-6.0); HEMATOCRIT 29.5 % (34.2-44.1); HEMOGLOBIN 8.6 g/dL (12.0-16.0); LYMPHOCYTES # (AUTO) 0.6 (1.0-3.2); LYMPHOCYTES % 24.8 % (18.0-39.1); MEAN CORPUSCULAR HEMOGLOBIN 25.1 pg (28-32); MEAN CORPUSCULAR HGB CONC 29.2 g/dL (31-35); MEAN CORPUSCULAR VOLUME 86.3 fL (81-99); MONOCYTES # (AUTO) 0.4 (0.2-0.8); NEUTROPHILS # (AUTO) 1.5 (2.1-6.9); NEUTROPHILS % 56.5 % (38.7-80.0); PLATELET COUNT 95 x10e3/uL (140-360); RED BLOOD COUNT 3.42 x10e6/uL (3.6-5.1); RED CELL DISTRIBUTION WIDTH 16.2 % (11.7-14.4)
[2021-12-12 11:50] LABS: ALBUMIN 3.8 g/dL (3.5-5.0); ALBUMIN/GLOBULIN RATIO 1.4 (0.8-2.0); ALKALINE PHOSPHATASE 46 IU/L (40-150); ANION GAP 14.7 mmol/L (8-16); BLOOD UREA NITROGEN 14 mg/dL (7-26); BUN/CREATININE RATIO 12 (6-25); CALCIUM 9.5 mg/dL (8.4-10.2); CARBON DIOXIDE 21 mmol/L (22-29); CHLORIDE 113 mmol/L (98-107); CREATININE, SERUM 1.16 mg/dL (0.57-1.11); GLUCOSE 96 mg/dL (74-118); POTASSIUM 3.7 mmol/L (3.5-5.1); SODIUM 145 mmol/L (136-145)
[2021-12-12 11:51] LABS: ALANINE AMINOTRANSFERASE < 6 IU/L (0-55)
[2021-12-12 12:13] LABS: INR 1.03; PROTHROMBIN TIME 14.4 seconds (11.9-14.5)
[2021-12-12 12:14] LABS: PARTIAL THROMBOPLASTIN TIME 36.4 seconds (23.8-35.5)
[~2021-12-15] MED LIST changes: -DIATRIZOATE MEGL/DIATRIZOA SOD 30 ML BTL PO ONE; -IOPAMIDOL 370 MG/ML 100 ML INFUS..BTL INJ ONE; -SODIUM CHLORIDE 0.9% 500ML 500 ML ONE
[2021-12-15 09:40] VITALS: BP 139/55
== END | disposition home or self-care (01) ==
LOC: OR 07:06
PROVIDERS: ATTEND Internal Medicine Gastroenterology
DX: R63.0 Anorexia (principal); K29.50 Unspecified chronic gastritis without bleeding; K44.9 Diaphragmatic hernia without obstruction or gangrene; Z98.84 Bariatric surgery status; K74.69 Other cirrhosis of liver; R63.4 Abnormal weight loss; R68.81 Early satiety; Z79.82 Long term (current) use of aspirin; Z79.899 Other long term (current) drug therapy; Z86.2 Personal history of diseases of the blood and blood-forming organs and certain disorders involving the immune mechanism; Z87.891 Personal history of nicotine dependence; G20 Parkinson's disease; Z01.810 Encounter for preprocedural cardiovascular examination; Z01.812 Encounter for preprocedural laboratory examination
CPT/HCPCS: 36415; 43239; 80053; 85025; 85610; 85730; 88304; 88305; 88342; 93005

== ENCOUNTER 2022-04-19 16:01 | Inpatient (IN) | payer MEDICARE, OTHER ==
[~2022-04-19] VITALS: Ht 160 cm; Wt 51.8 kg
[2022-04-19] MEDS ORDERED: SODIUM CHLORIDE 0.9% 1000ML 1,000 ML IV ONE (16:15)
[2022-04-19 18:02] LABS: BASOPHILS % 0.4 % (0.0-1.0); EOSINOPHILS # (AUTO) 0.1 (0.0-0.4); EOSINOPHILS % 5.7 % (0.0-6.0); LYMPHOCYTES # (AUTO) 0.6 (1.0-3.2); LYMPHOCYTES % 23.9 % (18.0-39.1); MEAN CORPUSCULAR HEMOGLOBIN 22.4 pg (28-32); MEAN CORPUSCULAR HGB CONC 28.4 g/dL (31-35); MEAN CORPUSCULAR VOLUME 78.7 fL (81-99); MONOCYTES # (AUTO) 0.3 (0.2-0.8); MONOCYTES % 10.5 % (4.4-11.3); NEUTROPHILS # (AUTO) 1.5 (2.1-6.9); NEUTROPHILS % 59.1 % (38.7-80.0); PLATELET COUNT 106 x10e3/uL (140-360); RED BLOOD COUNT 2.77 x10e6/uL (3.6-5.1); RED CELL DISTRIBUTION WIDTH 17.7 % (11.7-14.4)
[2022-04-19 18:03] LABS: HEMATOCRIT 21.8 % (34.2-44.1); HEMOGLOBIN 6.2 g/dL (12.0-16.0)
[2022-04-19] MEDS ORDERED: ONDANSETRON HCL INJ 2MG/ML 2ML 2 MG/ML VIAL IV PRN (18:15)
[2022-04-19] MEDS ORDERED: SODIUM CHLORIDE 0.9% 250ML 250 ML IV ONE (18:15)
[2022-04-19 18:20] LABS: ALANINE AMINOTRANSFERASE < 6 IU/L (0-55); ALBUMIN 3.3 g/dL (3.5-5.0); ALKALINE PHOSPHATASE 64 IU/L (40-150); ANION GAP 14.4 mmol/L (8-16); BLOOD UREA NITROGEN 22 mg/dL (7-26); BUN/CREATININE RATIO 20 (6-25); CALCIUM 8.4 mg/dL (8.4-10.2); CARBON DIOXIDE 20 mmol/L (22-29); CHLORIDE 112 mmol/L (98-107); CREATININE, SERUM 1.12 mg/dL (0.57-1.11); GLUCOSE 86 mg/dL (74-118); POTASSIUM 4.4 mmol/L (3.5-5.1); SODIUM 142 mmol/L (136-145)
[2022-04-19] MEDS: SODIUM CHLORIDE 0.9% 1000ML 1,000 ML IV SCH (19:40)
[2022-04-19 22:55] VITALS: BP_SYST 113; BP_SYST 122; BP_DIAS 54; BP_DIAS 63
[2022-04-19] MEDS ORDERED: SODIUM CHLORIDE 0.9% 250ML 250 ML ONE (23:32)
[2022-04-20] VITALS (8 sets, daily range): BP systolic 123–154; BP diastolic 50–66
[2022-04-20] MEDS: QUETIAPINE FUMARATE 25 MG TAB PO SCH ×2 (00:10→21:29)
[2022-04-20] MEDS ORDERED: FUROSEMIDE INJ 10 MG/ML 2 ML VIAL IV ONE (01:00)
[2022-04-20] MEDS: SODIUM CHLORIDE 0.9% 1000ML 1,000 ML IV SCH ×2 (03:23→16:49)
[2022-04-20 05:25] LABS: BASOPHILS % 0.5 % (0.0-1.0); EOSINOPHILS # (AUTO) 0.1 (0.0-0.4); EOSINOPHILS % 2.4 % (0.0-6.0); HEMATOCRIT 25.7 % (34.2-44.1); HEMOGLOBIN 7.7 g/dL (12.0-16.0); LYMPHOCYTES # (AUTO) 0.3 (1.0-3.2); LYMPHOCYTES % 7.9 % (18.0-39.1); MEAN CORPUSCULAR HEMOGLOBIN 23.8 pg (28-32); MEAN CORPUSCULAR VOLUME 79.6 fL (81-99); MONOCYTES # (AUTO) 0.6 (0.2-0.8); MONOCYTES % 16.4 % (4.4-11.3); NEUTROPHILS # (AUTO) 2.7 (2.1-6.9); RED BLOOD COUNT 3.23 x10e6/uL (3.6-5.1)
[2022-04-20 05:45] LABS: ALBUMIN 2.7 g/dL (3.5-5.0); ALBUMIN/GLOBULIN RATIO 1.1 (0.8-2.0); ANION GAP 11.7 mmol/L (8-16); CALCIUM 7.9 mg/dL (8.4-10.2); CREATININE, SERUM 0.84 mg/dL (0.57-1.11); POTASSIUM 3.7 mmol/L (3.5-5.1)
[2022-04-20 05:56] LABS: PLATELET COUNT 83 x10e3/uL (140-360)
[2022-04-20] MEDS: ACETAMINOPHEN 325 MG TAB PO PRN (06:10)
[2022-04-20] MEDS: PANTOPRAZOLE SOD 40 MG TABEC PO SCH (08:46)
[2022-04-20] MEDS: FOLIC ACID 1 MG TAB PO SCH (08:46)
[2022-04-20] MEDS: CARBIDOPA/LEVODOPA 25/100 TAB PO SCH ×2 (09:00→16:08)
[2022-04-20] MEDS: BUPROPION HCL 75 MG TAB PO SCH (16:08)
[2022-04-20] MEDS ORDERED: SODIUM CHLORIDE 0.9% 250ML 250 ML IV ONE (18:45)
[2022-04-20] MEDS ORDERED: SODIUM CHLORIDE 0.9% 250ML 250 ML ONE (21:58)
[2022-04-21] MEDS ORDERED: SODIUM CHLORIDE 0.9% 250ML 250 ML ONE (01:25)
[2022-04-21 05:48] LABS: BASOPHILS % 0.7 % (0.0-1.0); EOSINOPHILS # (AUTO) 0.1 (0.0-0.4); EOSINOPHILS % 3.6 % (0.0-6.0); HEMATOCRIT 28.4 % (34.2-44.1); HEMOGLOBIN 8.7 g/dL (12.0-16.0); LYMPHOCYTES # (AUTO) 0.6 (1.0-3.2); LYMPHOCYTES % 20.7 % (18.0-39.1); MEAN CORPUSCULAR HEMOGLOBIN 24.9 pg (28-32); MEAN CORPUSCULAR HGB CONC 30.6 g/dL (31-35); MEAN CORPUSCULAR VOLUME 81.1 fL (81-99); MONOCYTES # (AUTO) 0.4 (0.2-0.8); MONOCYTES % 13.5 % (4.4-11.3); NEUTROPHILS # (AUTO) 1.9 (2.1-6.9); NEUTROPHILS % 60.8 % (38.7-80.0); PLATELET COUNT 87 x10e3/uL (140-360)
[2022-04-21 09:08] VITALS: BP 143/57
[2022-04-21] MEDS ORDERED: ONDANSETRON HCL 4 MG ORAL DISINTEGRATING TAB PO PRN (09:30)
[2022-04-21] MEDS: PANTOPRAZOLE SOD 40 MG TABEC PO SCH (09:54)
[2022-04-21] MEDS: BUPROPION HCL 75 MG TAB PO SCH (09:54)
[2022-04-21] MEDS: FOLIC ACID 1 MG TAB PO SCH (09:54)
[2022-04-21] MEDS: CARBIDOPA/LEVODOPA 25/100 TAB PO SCH ×2 (09:54→16:36)
[2022-04-21 09:56] VITALS: BP 143/57
[2022-04-21 14:13] VITALS: BP 152/71
[2022-04-21 16:40] VITALS: BP 158/75
[2022-04-21] MEDS: ACETAMINOPHEN 325 MG TAB PO PRN (17:54)
[2022-04-21 20:00] VITALS: BP 141/69
[2022-04-21] MEDS: QUETIAPINE FUMARATE 25 MG TAB PO SCH (20:29)
[2022-04-21] MEDS: SODIUM CHLORIDE 0.9% 1000ML 1,000 ML IV SCH (22:00)
[2022-04-22] VITALS: BP 138/59
[2022-04-22 05:00] VITALS: BP 133/64
[2022-04-22] MEDS: ACETAMINOPHEN 325 MG TAB PO PRN (05:10)
[2022-04-22] MEDS: FOLIC ACID 1 MG TAB PO SCH (08:34)
[2022-04-22] MEDS: PANTOPRAZOLE SOD 40 MG TABEC PO SCH (08:34)
[2022-04-22] MEDS: BUPROPION HCL 75 MG TAB PO SCH (08:35)
[2022-04-22] MEDS: CARBIDOPA/LEVODOPA 25/100 TAB PO SCH (08:35)
[2022-04-22 08:36] VITALS: BP 154/66
[2022-04-22 09:06] VITALS: BP 154/66
== END 2022-04-22 11:48 | disposition home or self-care (01) | DRG 300 ==
LOC: ER 16:08 → ERHOLD 18:12 → MED/SURG 22:55 → OBSVTOIN 04-20 09:31
PROVIDERS: ADMIT Internal Medicine; ATTEND Internal Medicine
PROC: 30233N1 Transfusion of Nonautologous Red Blood Cells into Peripheral Vein, Percutaneous Approach (ICD-10-PCS; principal; 2022-04-19)
DX: Q27.39 Arteriovenous malformation, other site (principal); D61.818 Other pancytopenia; D62 Acute posthemorrhagic anemia; K76.6 Portal hypertension; K75.81 Nonalcoholic steatohepatitis (NASH); K74.60 Unspecified cirrhosis of liver; D64.9 Anemia, unspecified; D69.6 Thrombocytopenia, unspecified; D50.9 Iron deficiency anemia, unspecified; Z20.822 Contact with and (suspected) exposure to COVID-19; Z98.84 Bariatric surgery status; Z79.82 Long term (current) use of aspirin; Z96.642 Presence of left artificial hip joint
CPT/HCPCS: 36415; 80053; 85025; 86850; 86900; 86920; 96361; 99284; G0378; J1940; J7030; J7050; P9016; P9034

== ENCOUNTER → 2024-04-30 | Day surgery (SDC) | payer MEDICARE, OTHER ==
[2024-04-28 13:55] LABS: BASOPHILS % 0.5 % (0.0-1.0); EOSINOPHILS # (AUTO) 0.2 (0.0-0.4); EOSINOPHILS % 6.1 % (0.0-6.0); HEMATOCRIT 36.4 % (34.2-44.1); HEMOGLOBIN 11.8 g/dL (12.0-16.0); LYMPHOCYTES % 24.2 % (18.0-39.1); MEAN CORPUSCULAR HEMOGLOBIN 30.4 pg (28-32); MEAN CORPUSCULAR HGB CONC 32.4 g/dL (31-35); MEAN CORPUSCULAR VOLUME 93.8 fL (81-99); MONOCYTES # (AUTO) 0.4 (0.2-0.8); MONOCYTES % 10.2 % (4.4-11.3); NEUTROPHILS # (AUTO) 2.3 (2.1-6.9); NEUTROPHILS % 58.7 % (38.7-80.0); PLATELET COUNT 74 x10e3/uL (140-360); RED BLOOD COUNT 3.88 x10e6/uL (3.6-5.1); RED CELL DISTRIBUTION WIDTH 16.1 % (11.7-14.4); WHITE BLOOD COUNT 3.92 x10e3/uL (4.8-10.8)
[2024-04-28 14:16] LABS: ANION GAP 14.4 mmol/L (8-16); CALCIUM 9.3 mg/dL (8.4-10.2); CREATININE, SERUM 0.96 mg/dL (0.57-1.11); POTASSIUM 4.4 mmol/L (3.5-5.1)
[~2024-04-30] MED LIST changes: +ACETAMINOPHEN 1000 MG/100 ML 100 ML IV ONE; +BOTULINUM TOXIN TYPE A 100 UNIT VIAL IM ONE; +FENTANYL CITRATE/PF 100MCG/2 ML INJ ONE; +LIDOCAINE HCL 2% LOCAL INJ 5 ML SDV VIAL INJ ONE; +MAGNESIUM OXID400 MG PO; +PROPOFOL IV EMULSION 10 MG/ML 20 ML VIAL ONE; +SEVOFLURANE INHAL SOLN 250 ML PEN BTL ONE
[2024-04-30 11:58] VITALS: TEMP 97.3
[2024-04-30] MEDS: SODIUM CHLORIDE 0.9% 100 ML ONE (12:42)
[2024-04-30] MEDS: LACTATED RINGER'S 1,000 ML ONE (12:42)
[2024-04-30] MEDS: Ampicillin/Sulbactam 3 GM Vial ONE (12:43)
[2024-04-30 13:00] VITALS: BP 177/72; PULSE 78; RESP 16; O2SAT 97
== END | disposition home or self-care (01) ==
LOC: OR 08:38
PROVIDERS: ATTEND Urology
DX: N39.41 Urge incontinence (principal); N39.0 Urinary tract infection, site not specified; N32.3 Diverticulum of bladder; N81.10 Cystocele, unspecified; N81.6 Rectocele; N95.2 Postmenopausal atrophic vaginitis; I10 Essential (primary) hypertension; K21.9 Gastro-esophageal reflux disease without esophagitis; G20.A1 Parkinson's disease without dyskinesia, without mention of fluctuations; Z01.810 Encounter for preprocedural cardiovascular examination; Z01.812 Encounter for preprocedural laboratory examination; Z01.818 Encounter for other preprocedural examination; Z79.899 Other long term (current) drug therapy
CPT/HCPCS: 36415; 52005; 52287; 71046; 74420; 80048; 85025; 87086; 87186; 93005; C1758; J0131; J0295; J0587; J2003; J2704; J3010; J7050; J7121

== ENCOUNTER → 2024-08-06 | Day surgery (SDC) | payer MEDICARE, OTHER ==
[~2024-08-06] MED LIST changes: +AMLODIPINE BESYL5 MG PO; +DEXAMETHASONE SOD PHOS INJ 4 MG/ML SDV ONE; +FAMOTIDINE 20 MG/2 ML VIAL IV ONE; +ONDANSETRON HCL INJ 2MG/ML 2ML 2 MG/ML VIAL ONE
[2024-08-06 13:57] LABS: BASOPHILS % 0.2 % (0.0-1.0); EOSINOPHILS # (AUTO) 0.3 (0.0-0.4); EOSINOPHILS % 7.7 % (0.0-6.0); HEMATOCRIT 33.3 % (34.2-44.1); HEMOGLOBIN 11.7 g/dL (12.0-16.0); MEAN CORPUSCULAR HEMOGLOBIN 32.2 pg (28-32); MEAN CORPUSCULAR HGB CONC 35.1 g/dL (31-35); MEAN CORPUSCULAR VOLUME 91.7 fL (81-99); MONOCYTES # (AUTO) 0.4 (0.2-0.8); MONOCYTES % 9.8 % (4.4-11.3); NEUTROPHILS # (AUTO) 2.6 (2.1-6.9); NEUTROPHILS % 59.1 % (38.7-80.0); RED BLOOD COUNT 3.63 x10e6/uL (3.6-5.1); RED CELL DISTRIBUTION WIDTH 14.8 % (11.7-14.4)
[2024-08-06] MEDS: LACTATED RINGER'S 1,000 ML ONE (13:57)
[2024-08-06] MEDS: CEFEPIME HCL 1 GM VIAL ONE (13:57)
[2024-08-06] MEDS: GENTAMICIN 80MG/NS 100 ML 200 ML IV ONE (13:57)
[2024-08-06 13:58] LABS: PLATELET COUNT 76 x10e3/uL (140-360)
[2024-08-06 14:47] LABS: ANION GAP 13.3 mmol/L (8-16); CALCIUM 8.5 mg/dL (8.4-10.2); CREATININE, SERUM 0.85 mg/dL (0.57-1.11)
[2024-08-06 14:52] VITALS: TEMP 98.4
[2024-08-06 14:55] LABS: POTASSIUM 3.3 mmol/L (3.5-5.1)
[2024-08-06 16:05] VITALS: BP 162/74; PULSE 63; RESP 16; O2SAT 98
[2024-08-06] MEDS: PHENAZOPYRIDINE HCL 100 MG TAB ONE (16:10)
== END | disposition home or self-care (01) ==
LOC: OR 13:03
PROVIDERS: ATTEND Urology
DX: N39.41 Urge incontinence (principal); N39.0 Urinary tract infection, site not specified; N32.3 Diverticulum of bladder; N32.89 Other specified disorders of bladder; N81.10 Cystocele, unspecified; N81.6 Rectocele; N95.2 Postmenopausal atrophic vaginitis; G20.A1 Parkinson's disease without dyskinesia, without mention of fluctuations; F32.A Depression, unspecified; Z79.899 Other long term (current) drug therapy
CPT/HCPCS: 36415; 52005; 52287; 74420; 80048; 85025; 87086; 93005; J0131; J0587; J0692; J1100; J1308; J1580; J2003; J2405; J2704; J3010; J7121

== ENCOUNTER 2024-09-22 12:00 | Outpatient (RCR) | payer MEDICARE, OTHER ==
[~2024-09-22 12:00] MED LIST changes: -ACETAMINOPHEN 1000 MG/100 ML 100 ML IV ONE; -BOTULINUM TOXIN TYPE A 100 UNIT VIAL IM ONE; -DEXAMETHASONE SOD PHOS INJ 4 MG/ML SDV ONE; -FAMOTIDINE 20 MG/2 ML VIAL IV ONE; -FENTANYL CITRATE/PF 100MCG/2 ML INJ ONE; -LIDOCAINE HCL 2% LOCAL INJ 5 ML SDV VIAL INJ ONE; -ONDANSETRON HCL INJ 2MG/ML 2ML 2 MG/ML VIAL ONE; -PROPOFOL IV EMULSION 10 MG/ML 20 ML VIAL ONE; -SEVOFLURANE INHAL SOLN 250 ML PEN BTL ONE
== END 2024-09-25 ==
LOC: WCC 12:00
PROVIDERS: ATTEND Internal Medicine Infectious Disease
DX: L24.A2 Irritant contact dermatitis due to fecal, urinary or dual incontinence (principal)

== ENCOUNTER 2024-10-13 11:30 | Outpatient (RCR) | payer MEDICARE, OTHER ==
[2024-10-23] MEDS ORDERED: MAGNESIUM PO (12:55)
[2024-10-23] MEDS ORDERED: VITAMIN D3 PO (12:55)
== END 2024-10-26 ==
LOC: WCC 11:30
PROVIDERS: ATTEND Internal Medicine Infectious Disease
DX: L89.316 Pressure-induced deep tissue damage of right buttock (principal); L89.322 Pressure ulcer of left buttock, stage 2

== ENCOUNTER → 2024-10-24 | Day surgery (SDC) | payer MEDICARE, OTHER ==
[~2024-10-24] MED LIST changes: +BOTULINUM TOXIN TYPE A 100 UNIT VIAL IM ONE; +EPHEDRINE SULFATE INJ 50 MG/ML VIAL ONE; +LIDOCAINE HCL 2% LOCAL INJ 5 ML SDV VIAL INJ ONE; +MAGNESIUM PO; +ONDANSETRON HCL INJ 2MG/ML 2ML 2 MG/ML VIAL ONE; +PROPOFOL IV EMULSION 10 MG/ML 20 ML VIAL ONE; +VITAMIN D3 PO
[2024-10-24 09:55] LABS: BASOPHILS % 0.3 % (0.0-1.0); EOSINOPHILS % 5.6 % (0.0-6.0); LYMPHOCYTES % 17.3 % (18.0-39.1); MONOCYTES % 10.3 % (4.4-11.3); NEUTROPHILS % 66.2 % (38.7-80.0); RED CELL DISTRIBUTION WIDTH 14.4 % (11.7-14.4)
[2024-10-24 10:26] LABS: EST GLOMERULAR FILTRATION RATE 57.0 ML/MIN (>=60)
[2024-10-24] MEDS: CEFTRIAXONE 1 GM VIAL ONE (10:32)
[2024-10-24] MEDS: SODIUM CHLORIDE 0.9% 1000ML 1,000 ML ONE (10:32)
[2024-10-24 12:02] VITALS: TEMP 96.9
[2024-10-24] MEDS: PHENAZOPYRIDINE HCL 100 MG TAB ONE (12:30)
[2024-10-24 13:20] VITALS: BP 154/61; PULSE 62; RESP 18; O2SAT 98
== END | disposition home or self-care (01) ==
LOC: OR 08:41
PROVIDERS: ATTEND Urology
DX: N39.46 Mixed incontinence (principal); N39.0 Urinary tract infection, site not specified; R35.0 Frequency of micturition; R31.29 Other microscopic hematuria; N32.3 Diverticulum of bladder; N81.10 Cystocele, unspecified; N81.6 Rectocele; R35.1 Nocturia; N95.2 Postmenopausal atrophic vaginitis; Z79.899 Other long term (current) drug therapy; I10 Essential (primary) hypertension; G20.A1 Parkinson's disease without dyskinesia, without mention of fluctuations
CPT/HCPCS: 36415; 52005; 52287; 74420; 80048; 85025; 87086; 87186; J0587; J0696; J2003; J2405; J2704; J7030